=== PATIENT | female | born 1965 | race Caucasian/White ===

== ENCOUNTER → 2016-09-30 | Outpatient (CLI) | payer BC ==
[~2016-09-30] MED LIST: ASPCH81X PO; LISI20TA55 PO; METO25TA3 PO; PRAV20TA PO; ROSU5TAB PO; TAMO20TA47 PO
[2016-09-30 14:21] VITALS: BP 144/79; PULSE 70; TEMP 37; O2SAT 98
--- NOTE | 2016-09-30 16:45 | Radiation Oncology Follow-Up ---
Radiation Oncology Follow-Up Date of Visit Sep 30, 2016. (Lakisha Roger PA-C) Reason For Visit 6 month follow-up (Lakisha Roger PA-C) Radiation Completion Date finished 02-20-2016 (Lakisha Roger PA-C) Diagnosis (1) Breast cancer Status: Resolved Onset Date: 11/27/2015 Stage: 0 Permanent Comment: DIAGNOSIS: Left breast, DCIS, grade 3, comedonecrosis, ER positive, Tis, stage 0 TREATMENT: 1. Lumpectomy - 11/27/2015 2. Status post completion of radiation therapy 02/20/2016 received 6640 cGy Last Edited By: Lakisha Roger on Sep 30, 2016 16:45 (Lakisha Roger PA-C) History of Present Illness Ms. Hernandez is a 51-year-old female who self palpated a left breast mass. She does note any skin changes. She did undergo a bilateral mammogram on 2015 which did not show any concerning findings. She did then undergo a a unilateral left breast ultrasound which only showed some scattered regional calcifications but no hypoechoic mass. She then did have a bilateral MRI of the breast on 11/06/2015 which showed an irregular enhancing lesion in the 12: 00 location which measured 2.6 cm in the greatest dimension. There was no evidence of any adenopathy. She then underwent a left breast ultrasound core biopsy on 11/12/2015 which was negative for invasive carcinoma and DCIS. 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 Comedonecrosis was noted. The margins were greater than 0.1 cm except for the deep margin which was less than 0.[address] Carpenter noted that the lumpectomy cavity approach the chest wall which accounts for the closest margin. The pathology specimen was sent for a second opinion consultation due to consideration of microinvasion and this was reported back as negative for microinvasion. We are now seeing the patient in consultation to discuss the role of adjuvant radiation therapy. She underwent CT simulation and decision was to treat with conventional therapy. Treatment was completed 02/20/2016 she received 6640 cGy. (Lakisha Roger PA-C) Interim History She's been doing well over the past 6 months. She has noted no changes to her breast. She has no tenderness. She has noted no masses and no change of the axilla. She's had no swelling of her arm. She is on tamoxifen and denies side effects. She'll be due for bilateral diagnostic mammography in November. She plans on scheduling this at her visit with her PCP next week. She'll also be having a follow-up appointment with Dr. Carpenter. (Lakisha Roger PA-C) Allergies Coded Allergies: No Known Allergies (Unverified , 12/10/15) Home Medications Scheduled Aspirin (Aspirin Chewable), 81 MG PO DAILY Lisinopril/Hctz (Prinzide 20-25MG), 0.5 TAB PO DAILY Metoprolol Succ (Toprol Xl) (Toprol-Xl), 25 MG PO BID Rosuvastatin Calcium (Crestor), 1 TAB PO DAILY Tamoxifen (Nolvadex), 20 MG PO DAILY Review of Systems Gastrointestinal: Symptoms: WNL Oral: Symptoms: No Problems Respiratory: Symptoms: WNL Urinary: Symptoms: WNL Skin: Symptoms: No Problems Breast: Right Upper Arm Measurement: 26.5 Right Mid Arm Measurement: 25.5 Right Wrist Measurement: 17.0 Left Upper Arm Measurement: 26.5 Left Mid Arm Measurement: 25.5 Left Wrist Measurement: 17.5 Arm Dominence: Right Patient Cosmetic Evaluation: Good Staff Cosmetic Evalaluation: Good (Lakisha Roger PA-C) Physical Exam Vital Signs Date Time Temp Pulse Resp B/P Pulse Ox O2 Delivery O2 Flow Rate FiO2 09/30/16 14:21 37.0 70 16 144/79 98 Pain: Side: Bilateral Patient Pain Scale: 0 - 10 Initial Pain Intensity: 0.0 Fatigue: None General Appearance: no apparent distress Eyes: normal inspection, EOMI ENT: normal ENT inspection, hearing grossly normal Neck: no adenopathy, thyroid normal Respiratory/Chest: lungs clear, no respiratory distress, no accessory muscle use Breast: Breast examination reveals resolving hyperpigmentation of the left breast. There are no masses or tenderness and no axillary adenopathy. There are mild fibrous changes in the area of the incision. There are no skin retractions. She does have some dryness of the nipple. Using the [place] score cosmesis she has a good outcome. The right breast showed no masses or tenderness and no axillary adenopathy. Cardiovascular: regular rate, rhythm, no gallop, no murmur Abdomen: non tender, soft, no organomegaly Extremities: no pedal edema Neurologic/Psychiatric: no motor/sensory deficits, alert, normal mood/affect Skin: warm/dry Lymphatic: no adenopathy (Lakisha Roger PA-C) Additional Studies She had a mammogram at [facility] 06/03/2016. This showed stable postoperative findings. Bilateral mammography is recommended in 6 months. This was given a BI-RADS Category 3. (Lakisha Roger PA-C) Assessment & Plan Plan: Continue with mammography. She'll be due in November. She is going to get this scheduled through her primary care physician's office. Continue regular follow-up with Dr. Carpenter. She continues on tamoxifen. We asked her to return to our office in 1 year. An excuse for absence from work for today was given. She may call our office if she has any questions or concerns we'll be happy to see her. (Lakisha Roger PA-C) I agree with note created by Lakisha Roger PA-C. I reviewed the patient's chart and information with her. (Veeral. Hearn MD) Total Time In Follow-Up I spent 20 minutes speaking to the patient and performed an examination. I spent 15 minutes reviewing information and completing this note. (Lakisha Roger PA-C) Copy To Markell Carpenter M.D.; Yin Cuellar M.D. Problem Qualifiers (1) Breast cancer: Patient gender: female Laterality: left
== END | disposition home or self-care (01) ==
LOC: C.ONC 13:57
PROVIDERS: ATTEND Radiology Radiation Oncology
DX: Z08 Encounter for follow-up examination after completed treatment for malignant neoplasm (principal); Z92.3 Personal history of irradiation; Z85.3 Personal history of malignant neoplasm of breast

== ENCOUNTER → 2017-09-28 | Outpatient (CLI) | payer BC ==
[2016-09-30 14:21] VITALS: BP 144/79; PULSE 70
[~2017-09-28] MED LIST changes: +DILT240C48 PO; -PRAV20TA PO; -TAMO20TA47 PO; +TAMO20TA9 PO
[2017-09-28 13:02] VITALS: BP 136/83; PULSE 76; TEMP 36.8; O2SAT 98
--- NOTE | 2017-09-28 16:58 | Radiation Oncology Follow-Up ---
Radiation Oncology Follow-Up Date of Visit Sep 28, 2017. Reason For Visit Annual follow-up Radiation Completion Date 02/20/16 Diagnosis (1) Breast cancer Status: Resolved Onset Date: 11/27/2015 Stage: 0 Permanent Comment: DIAGNOSIS: Left breast, DCIS, grade 3, comedonecrosis, ER positive, Tis, stage 0 TREATMENT: 1. Lumpectomy - 11/27/2015 2. Status post completion of radiation therapy 02/20/2016 received 6640 cGy Last Edited By: Lakisha Roger on Sep 30, 2016 16:45 History of Present Illness Ms. Hernandez palpated a left breast mass. She does note any skin changes. She did undergo a bilateral mammogram on 10/20/2015 which did not show any concerning findings. She did then undergo a a unilateral left breast ultrasound which only showed some scattered regional calcifications but no hypoechoic mass. She then did have a bilateral MRI of the breast on 11/06/2015 which showed an irregular enhancing lesion in the 12:00 location which measured 2.6 cm in the greatest dimension. There was no evidence of any adenopathy. She then underwent a left breast ultrasound core biopsy on 11/12/2015 which was negative for invasive carcinoma and DCIS. 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 Comedonecrosis was noted. The margins were greater than 0.1 cm except for the deep margin which was less than 0.[address] Carpenter noted that the lumpectomy cavity approach the chest wall which accounts for the closest margin. The pathology specimen was sent for a second opinion consultation due to consideration of microinvasion and this was reported back as negative for microinvasion. We are now seeing the patient in consultation to discuss the role of adjuvant radiation therapy. She underwent CT simulation and decision was to treat with conventional therapy. Treatment was completed 02/20/2016 she received 6640 cGy. Interim History She's been doing well over this past year. She is noted no changes or breast. She has a mild discomfort in the lateral aspect of the chest wall near the axilla. This can be up to level V. She feels this is been present since surgery. She's noticed no swelling or redness. This does not require any over- the-counter or prescription medications. She saw Dr. Carpenter Rangel. She has had recheck mammography. These are performed at [facility]. She had one in November and also May. We will obtain a copy of these for our chart. Allergies Coded Allergies: No Known Allergies (Unverified , 12/10/15) Home Medications Scheduled Aspirin (Aspirin Chewable), 81 MG PO DAILY Diltiazem Hcl Coated Beads (Cartia Xt), 120 MG PO DAILY Lisinopril/Hctz (Prinzide 20-25MG), 0.5 TAB PO DAILY Rosuvastatin Calcium (Crestor), 1 TAB PO DAILY Tamoxifen (Nolvadex), 20 MG PO DAILY Review of Systems Gastrointestinal: Symptoms: WNL Oral: Symptoms: No Problems Respiratory: Symptoms: WNL Urinary: Symptoms: WNL Skin: Symptoms: No Problems Breast: Right Upper Arm Measurement: 26.5 Right Mid Arm Measurement: 27.0 Right Wrist Measurement: 17.3 Left Upper Arm Measurement: 26.0 Left Mid Arm Measurement: 25.5 Left Wrist Measurement: 17.3 Arm Dominence: Right Patient Cosmetic Evaluation: Good Staff Cosmetic Evalaluation: Good Physical Exam Vital Signs Date Time Temp Pulse Resp B/P (MAP) Pulse Ox O2 Delivery O2 Flow Rate FiO2 09/28/17 13:02 36.8 76 16 136/83 98 Fatigue: None General Appearance: no apparent distress Eyes: normal inspection, EOMI ENT: normal ENT inspection, hearing grossly normal Neck: no adenopathy, thyroid normal Respiratory/Chest: lungs clear, no respiratory distress, no accessory muscle use Breast: Breast examination reveals no masses or tenderness and no axillary adenopathy. There is a well-healed incision of the left breast. There is no tenderness of the axilla or midaxillary line. There are no skin retractions or nipple changes. Using the [place] score cosmesis she has a good outcome. The right breast showed no masses or tenderness and no axillary adenopathy. Cardiovascular: regular rate, rhythm, no gallop, no murmur Extremities: no pedal edema Neurologic/Psychiatric: no motor/sensory deficits, alert, normal mood/affect Skin: warm/dry Pain Management Patient Reports Pain: Yes Side: Left Patient Preferred Pain Scale: 0 - 10 Initial Pain Intensity: 0.0 Pain Management Plan The discomfort is of the left axilla. Laboratory Laboratory Results: not applicable Pathology Pathology Results: not applicable Imaging Imaging Studies: were reviewed Imaging Comments See interim history Assessment & Plan Plan: Patient is also seen and examined by Dr. Hearn. We discussed the discomfort of the axilla. Pain could be related to inflammation. I've asked her to take ibuprofen 400 mg twice a day with food for one week. If the pain resolves she may stop the medication. We did discuss that periodically this could be taken but should not be taken on a regular basis. She'll continue regular follow-up with her primary care physician. We asked her to return to our office in 1 year. She will call if she has any questions or concerns in the interim. Assessment & Plan (Attending) ADDENDUM: I agree with note created by Lakisha Roger PA-C. I reviewed the patient's chart and information with her. I have examined and evaluated the patient. I reviewed relevant clinical information and answered the patient's and /or family's questions. 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 I spent 15 minutes reviewing information in completing this note. Total Time (Attending) In Follow-Up I spent 15 minutes examining and counseling the patient. 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
== END | disposition home or self-care (01) ==
LOC: C.ONC 12:54
PROVIDERS: ATTEND Physician Assistant Medical
DX: Z08 Encounter for follow-up examination after completed treatment for malignant neoplasm (principal); Z92.3 Personal history of irradiation; Z85.3 Personal history of malignant neoplasm of breast